=== PATIENT | male | born 1960 | race Caucasian/White ===

== ENCOUNTER 2017-04-22 10:05 | Inpatient (IN) ==
--- NOTE | 2017-04-22 10:46 | Emergency Department Note ---
START Narrative - START START: I examined this patient and my medical decision-making was reviewed with the Resident Physician. I agree with the documented findings, disposition and treatment plan as described except to the extent set forth below. 56 year old male presents to the ED with complaints of recurring abscess drainasge of his left elbow which he incurred from a trauamtic laceration which required 6 sutures and then tried outaptinet therapy with bactrim/keflex and now he is havign difficulty wiht range of motion of his elbow and the induration and redness is worsening with increased drainge from the laceration site. Nils denies fevers, nasuea, vomitting, although he has had two hip replacements in the past. No history of MRSA. He grew out GBS in the culture and we will admit to medicine after CT imaging of his elbow and IVF/abx therapy started and possible consult with ortho for septic joint.
[2017-04-22] MEDS ORDERED: Piperacillin/Tazobactam 3.375 GM in 0.9 % Sodium Chloride Mini Bag 100 ML IVPB ONE (10:47)
--- NOTE | 2017-04-22 10:49 | Emergency Department Note ---
Disposition Clinical Impression: Cellulitis of left upper extremity Disposition: Admitted As Inpatient Condition: Good Instructions: Cellulitis (ED) Referrals: Lu,Wu Perez MD [Primary Care Provider] - Extremity Problem HPI - General Chief complaint: ED Extremity Problem,Nontraumatic Stated complaint: Left arm abscess Time Seen by Provider: 04/22/17 10:15 Source: patient Mode of arrival: private vehicle Limitations: no limitations Nursing Notes Reviewed: Yes Vital Signs Reviewed: Yes - History of Present Illness HPI Narrative: Mr Schwab is a 56 yo M w/ pmh of hip replacement presented to ED with abscess on Left elbow. 3 weeks ago patient hit his elbow on a dresser, he presented to ED and had [address]. On this past Thursday patient had soreness and swelling of his left arm, he came to [facility] ED and was started on bactrim + keflex, and was instructed to return to ED if there was no improvement. Last night, patient states his arm was so swollen that he was very limited on the motion of his arm, as well, his wound has continuous pus. On admission today, cultures returned back positive from his last ED visit for Group B Strep. Patient denies fever, chills, or feeling ill in general. Pt Subjective Complaint: extremity swelling Onset (ago): week(s) (3) Consistency: constant Injury Location: left, elbow Pain Scale: 1 Quality: other (sore) Radiation: proximal (1/3 distal upper arm), distal (to hand) Improves with: nothing Worsens with: range of motion Associated symptoms: Reports: denies other symptoms - Related Data Home Medications Medication Instructions Recorded Confirmed Atenolol [Tenormin] 50 mg PO DAILY 04/22/17 04/22/17 Cephalexin [Keflex] 500 mg PO QID 04/22/17 04/22/17 Losartan/HCTZ [Hyzaar 50-12.5 1 tab PO DAILY 04/22/17 04/22/17 Tablet] Ranitidine HCl [Acid Cutter Banana Room] 150 mg PO DAILY 04/22/17 04/22/17 Sulfamethoxazole/Trimeth DS 1 tab PO BID 04/22/17 04/22/17 [Bactrim DS] Allergies Allergy/AdvReac Type Severity Reaction Status Date / Time No Known Allergies Allergy Verified 04/22/17 10:11 All systems ED: reviewed and negative except as stated. Review of Systems: As Per HPI Past Medical History - Past Medical History Medical history: Reports: GERD, hypertension Surgical history: Reports: orthopedic, other Psychiatric history: Reports: no psych history - Social History Smoking Status: Never smoker Smokeless Tobacco Status: No Alcohol use: Reports: none Drug use: Reports: none Physical Exam - General Limitations: no limitations General appearance: alert, in no apparent distress - Head Head exam: atraumatic - Respiratory Respiratory exam: Present: normal lung sounds bilaterally - Cardiovascular Cardiovascular exam: Present: regular rate, normal rhythm, normal heart sounds - Extremities Exam Extremities exam: Present: full ROM, tenderness (at left elbow), joint swelling - Expanded Upper Extremity Exam Arm exam: Present: swelling (L), erythema (L) Elbow exam: Present: laceration (l) Forearm/Wrist exam: Present: swelling (l), erythema (l) Vascular exam: Normal: capillary refill (<2 sec), radial pulse (symmetrical), ulnar pulse (symmetrical) Course Course Narrative: Most likely cellulitis from Left elbow laceration. Patient is vitally stable but Left arm is indurated from 1/3 distal upper arm to finger tips. Culture of wound came back positive for GBS. Patient failed outpatient abx treatment with Bactrim and Keflex will admit for IV abx and observation. Ordered CT of elbow, and will consider ortho consult for washout. Vital Signs Temperature 98.8 F 04/22/17 10:11 Pulse Rate 84 04/22/17 10:11 Respiratory Rate 16 04/22/17 10:11 Blood Pressure 141/93 04/22/17 10:11 O2 Sat by Pulse Oximetry 96 04/22/17 10:11 Temperature 98.8 F 04/22/17 10:11 Pulse Rate 84 04/22/17 10:11 Respiratory Rate 16 04/22/17 10:11 Blood Pressure 141/93 04/22/17 10:11 O2 Sat by Pulse Oximetry 96 04/22/17 10:11 Oxygen Delivery Oxygen Delivery Room Air Extremity Problem, Nontraumati - [facility] Narrative Medical decision making narrative: Indurated left arm due to left elbow laceration from 3 weeks ago. Non- responsive to oral abx, will admit for IV abx - Differential Diagnosis Likely: cellulitis. Unlikely: herpes zoster, gout, deep venous thrombosis, lower extremity edema, compartment syndrome, arterial vascular disorder - Medical Records Medical records reviewed: Yes I reviewed the patient's medical records. - Lab Data Lab results reviewed: Yes I reviewed the patient's lab results. Critical Care Time Critical Care Time: No
[2017-04-22 10:58] LABS: Basophils % 0.6 %; Eosinophils # 0.1 K/mcL (0.0-0.6); Eosinophils % 1.2 %; Hematocrit 43.8 % (37.5-50.1); Immature Granulocytes % 0.4 % (0-4); Lymphocytes # 0.9 K/mcL (0.6-4.6); Lymphocytes % 13.8 %; Mean Corpuscular HGB Conc 34.2 g/dL (31.6-35.5); Mean Corpuscular Hemoglobin 31.2 pg (28.0-33.3); Mean Corpuscular Volume 91.1 fL (83.0-100.0); Mean Platelet Volume 9.6 fL (9.4-12.4); Monocytes # 0.5 K/mcL (0.0-1.3); Monocytes % 7.5 %; Neutrophils # 5.1 K/mcL (1.6-8.9); Platelet Count 213 K/mcL (140-400); Red Blood Count 4.81 M/mcL (4.19-5.50); Red Cell Distribution Width 12.3 % (11.5-14.5); Segmented Neutrophils % 76.5 %
[2017-04-22 11:03] LABS: INR 1.1; Prothrombin Time 11.4 Seconds (9.4-12.1)
[2017-04-22 11:06] LABS: Activated Partial Thrombo Time 32.4 Seconds (26.0-36.0)
[2017-04-22] MEDS: 0.9 % Sodium Chloride 1,000 ML IVC SCH ×2 (11:15→13:58)
[2017-04-22 11:18] LABS: BUN/Creatinine Ratio 11 (6-26); Blood Urea Nitrogen 12 mg/dL (6-20); Calcium 9.1 mg/dL (8.6-10.3); Carbon Dioxide 27 mEq/L (23-29); Chloride 100 mEq/L (98-107); Glucose 185 mg/dL (70-105); Magnesium 1.8 mg/dL (1.6-2.6); Osmolality,Calculated 285 (280-300); Phosphorous 2.4 mg/dL (2.7-4.5); Potassium 3.5 mEq/L (3.5-5.1); Sodium 135 mEq/L (136-145); eGFR For African Americans > 60 (> 60); eGFR For Non-African Americans > 60 (> 60)
[2017-04-22] MEDS ORDERED: *HR* HYDROcodone/Acet 5/325 mg TABLET PO ONE (15:52)
[2017-04-22] MEDS ORDERED: Naloxone 0.4 MG/ML INJ IVP PRN (16:01)
[2017-04-22] MEDS ORDERED: Acetaminophen 325 MG TABLET PO PRN (16:01)
[2017-04-22] MEDS ORDERED: *HR* HYDROcodone/Acet 5/325 mg TABLET PO PRN (16:17)
--- NOTE | 2017-04-22 16:21 | Internal Med History&Physical ---
Date of Encounter: 04/22/17 Time of Encounter: 16:21 Assessment and Plan (1) Essential hypertension Current visit: Yes Status: Acute Continue losartan HCTZ and atenolol. Blood pressure is currently well controlled. (2) Cellulitis of left upper extremity Current visit: Yes Status: Acute Center around the left elbow. CT of the arm shows fluid collection with surrounding cellulitis. We will treat him with broad-spectrum IV antibiotics to cover community- acquired MRSA including vancomycin and Zosyn. We will follow up wound culture and sensitivities as well as blood cultures and adjust antibiotic therapy accordingly. We will consult orthopedics for I&D. Pain control with Lyly. He is at high risk for morbidity and complications due to treatment with IV vancomycin which requires blood level monitoring for toxicity and therapeutic effect. (3) GERD (gastroesophageal reflux disease) Current visit: Yes Status: Acute Continue with Pepcid Qualifiers: Esophagitis presence: without esophagitis Qualified Code(s): K21.9 - Gastro -esophageal reflux disease without esophagitis (4) DVT prophylaxis Current visit: Yes Status: Acute Encourage ambulation. No pharmacological prophylaxis needed due to ambulatory status. Internal Medicine - H&P: HPI Chief complaint: Left elbow pain Admitted From: Emergency Dept Plans for Post Hospital Care: Home History of present illness: Mr. Schwab is a 56 year old male with past medical history significant for hypertension and GERD who presented to the hospital for evaluation of left elbow pain. He scraped his elbow 2 weeks ago at home and caused a laceration which was sutured the next day in the emergency department. The wound was healing appropriately up until 5 days ago when he started noticing some swelling in his elbow. 2 days ago he presented to the emergency department and he was given IM antibiotics, the wound was cleaned but not debrided and he was sent home with oral antibiotics. Since then he noticed worsening mild to moderate aching pain in the left elbow, worse with movement. He denies associated fevers chills and nausea. A 10 point review of systems was negative except as above Surgical history pertinent for bilateral hip replacement, right shoulder surgery and fasciotomy of both lower extremities for compartment syndrome Family history was reviewed and found to be noncontributory Social history he denies tobacco alcohol and drug use. Past Med Surg Social Fam HX - Past Medical History Medical history: GERD, hypertension Psychiatric history: no psych history - Past Surgical History Surgical History: orthopedic, other - Social History Smoking Status: Never smoker Smokeless Tobacco Status: No Alcohol use: none Drug use: none - Family History Mother Hx Family Endocrine Disorder: Yes (diabetes) Internal Medicine - H&P: Meds Atenolol [Tenormin] 50 mg PO DAILY 04/22/17 [History] Cephalexin [Keflex] 500 mg PO QID 04/22/17 [History] Losartan/HCTZ [Hyzaar 50-12.5 Tablet] 1 tab PO DAILY 04/22/17 [History] Ranitidine HCl [Acid Collector Of Port] 150 mg PO DAILY 04/22/17 [History] Sulfamethoxazole/Trimeth DS [Bactrim DS] 1 tab PO BID 04/22/17 [History] 3 Allergy/AdvReac Type Severity Reaction Status Date / Time No Known Allergies Allergy Verified 04/22/17 10:11 All Systems PM: A 10-system review of systems was performed and is negative for pertinent findings except as documented above in the HPI. - Constitutional Vitals: Temp Pulse Resp BP Pulse Ox 98.1 F 100 16 117/69 94 04/22/17 15:22 04/22/17 15:22 04/22/17 15:22 04/22/17 15:22 04/22/17 15:22 General appearance: Present: A&O X 3, no acute distress - Eye Eye exam: Present: PERRL, conjuntiva pink, sclera anicteric Pupils: Present: PERRL - Respiratory Respiratory exam: Present: CTAB. Absent: accessory muscle use, rales, rhonchi, wheezes - Cardiovascular Cardiovascular exam: Present: RRR, +S1, +S2. Absent: diastolic murmur, gallop, rubs, systolic murmur - GI/Abdominal GI/Abdominal exam: Present: normal bowel sounds, soft, no peritoneal signs. Absent: distended, tenderness - Neurological Exam Neurological exam: Present: CN II-XII intact, oriented X3, no focal deficits. Absent: pronater drift, facial droop, speech deficit - Skin Skin exam: Present: dry Additional comments: Left elbow is covered with dressing clean dry and intact, there is an area of mild erythema and soft tissue edema extended beyond the dressing. Internal Med - H&P Results - Labs CBC & Chem 7: 04/22/17 10:40 04/22/17 10:40
--- NOTE | 2017-04-22 16:26 | Orthopedic Consult Note ---
Date of Encounter: 04/22/17 Time of Encounter: 16:24 Assessment and Plan (1) Cellulitis of left upper extremity Current Visit: Yes Status: Acute I did discuss the diagnosis with the patient in great detail. 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 There is overlying cellulitis. My recommendation is for formal operative debridement of devitalized tissue involving the left posterior elbow region followed by wet-to- dry dressings. This will likely require long-term wound care, possible VAC treatment, and possible the need for split-thickness skin grafting in the future. He can have a diet now. I did place a dressing over the wound. Nothing by mouth after midnight. He is placed on the add-on schedule for the above procedure for tomorrow afternoon/early evening. History of Present Illness HPI: Mr. 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 He comes in for evaluation of his left elbow. About 3 weeks ago he sustained an injury when he fell on a piece of furniture which caused a stellate laceration to the left olecranon bursal area. This was closed acutely in the emergency department and the patient was discharged home and he had his sutures taken out about 9 days ago by an outside clinic. The patient says the wound had never healed and he began to develop redness and had concerns for infection and presented to the emergency department 2 days ago where he is placed on Keflex and Bactrim. He came back to the emergency department today due to persistence of pain, swelling, redness, and drainage. The CT scan did show olecranon bursitis and previous cultures obtained of the bursal fluid demonstrated group B strep. The patient was admitted to the hospitalist and orthopedics was consulted to assist in the evaluation and management of this patient. On my evaluation the patient complains of isolated moderate achy pain to the posterior left olecranon region. Mild numbness in this area. Pain is worse with movement of the elbow and better with rest. No numbness, tingling, or other associated signs or symptoms or modifying factors. He denies any feelings of illness. Past Med Surg Social Fam HX - Past Medical History Medical history: GERD, hypertension Psychiatric history: no psych history - Past Surgical History Surgical History: orthopedic, other - Social History Smoking Status: Never smoker Smokeless Tobacco Status: No Alcohol use: none Drug use: none - Family History Mother Hx Family Endocrine Disorder: Yes (diabetes) Medications and Allergies Atenolol [Tenormin] 50 mg PO DAILY 04/22/17 [History] Cephalexin [Keflex] 500 mg PO QID 04/22/17 [History] Losartan/HCTZ [Hyzaar 50-12.5 Tablet] 1 tab PO DAILY 04/22/17 [History] Ranitidine HCl [Acid Small Engine Mechanic] 150 mg PO DAILY 04/22/17 [History] Sulfamethoxazole/Trimeth DS [Bactrim DS] 1 tab PO BID 04/22/17 [History] 3 Allergy/AdvReac Type Severity Reaction Status Date / Time No Known Allergies Allergy Verified 04/22/17 10:11 All Systems Reviewed: A 10-system review of systems was performed and is negative for pertinent findings except as documented above in the HPI. Physical Exam - Constitutional Vitals: Temp Pulse Resp BP Pulse Ox 98.1 F 100 16 117/69 94 04/22/17 15:22 04/22/17 15:22 04/22/17 15:22 04/22/17 15:22 04/22/17 15:22 CONSTITUTIONAL -Vitals reviewed -The patient is well developed, well nourished, well groomed PSYCHIATRIC -Fully alert and oriented -Pleasant mood LEFT UPPER EXTREMITY Inspection shows that over the olecranon bursa there is a 2 cm long by 1 cm wide area of ulceration with a small fistula communicating with the olecranon bursa. There is moderate drainage. There is surrounding erythema and induration and there is tenderness in this area. Full active and passive motion of the elbow without generalized elbow pain. The patient can actively flex and extend all digits, extend the thumb, cross the index and long fingers, make an okay sign, and oppose the thumb. The fingertips are all grossly sensate and well-perfused, and the radial artery pulse is 2+. Diagnostic Imaging: I did personally review and interpret the CT scan of the left elbow which did show bursal inflammation and air presumably from communication of the bursa with the environment through the fistula. Results - Labs Result Diagrams: 04/22/17 10:40 04/22/17 10:40 Labs: Abnormal lab results Sodium 135 mEq/L (136-145) L 04/22/17 10:40 Glucose 185 mg/dL (70-105) H 04/22/17 10:40 Phosphorus 2.4 mg/dL (2.7-4.5) L 04/22/17 10:40 All other labs normal. Consult Discharge Plan - Plan Referrals: Wu Lu MD [Primary Care Provider] -
[2017-04-23 05:54] LABS: Basophils % 0.7 %; Eosinophils # 0.1 K/mcL (0.0-0.6); Eosinophils % 1.7 %; Hematocrit 40.7 % (37.5-50.1); Hemoglobin 13.7 g/dL (12.9-16.9); Immature Granulocytes % 0.7 % (0-4); Lymphocytes # 1.2 K/mcL (0.6-4.6); Lymphocytes % 20.6 %; Mean Corpuscular HGB Conc 33.7 g/dL (31.6-35.5); Mean Corpuscular Hemoglobin 31.4 pg (28.0-33.3); Mean Corpuscular Volume 93.3 fL (83.0-100.0); Mean Platelet Volume 9.7 fL (9.4-12.4); Monocytes # 0.6 K/mcL (0.0-1.3); Monocytes % 9.9 %; Neutrophils # 3.9 K/mcL (1.6-8.9); Platelet Count 199 K/mcL (140-400); Red Blood Count 4.36 M/mcL (4.19-5.50); Red Cell Distribution Width 12.3 % (11.5-14.5); Segmented Neutrophils % 66.4 %
[2017-04-23 06:32] LABS: BUN/Creatinine Ratio 10 (6-26); Blood Urea Nitrogen 8 mg/dL (6-20); Calcium 8.8 mg/dL (8.6-10.3); Carbon Dioxide 28 mEq/L (23-29); Chloride 104 mEq/L (98-107); Glucose 118 mg/dL (70-105); Magnesium 1.9 mg/dL (1.6-2.6); Osmolality,Calculated 285 (280-300); Potassium 3.6 mEq/L (3.5-5.1); Sodium 138 mEq/L (136-145); eGFR For African Americans > 60 (> 60); eGFR For Non-African Americans > 60 (> 60)
[2017-04-23] MEDS: Famotidine 20 MG TABLET PO SCH (08:44)
[2017-04-23] MEDS: Losartan/HCTZ 50-12.5 TABLET PO SCH (08:44)
[2017-04-23] MEDS ORDERED: Aminoglycoside Consult 1 EACH MC ONE (12:19)
--- NOTE | 2017-04-23 13:07 | Internal Med Progress Note ---
Date of Encounter: 04/23/17 Time of Encounter: 13:05 - Assessment and plan (1) Cellulitis of left upper extremity Current Visit: Yes Status: Acute Assessment and plan: Continue with broad-spectrum antibiotics with ankle and Zosyn. Orthopedics to take to the OR later today. Continue with pain control. Continue with wound care. (2) Essential hypertension Current Visit: Yes Status: Acute Assessment and plan: Blood pressure is well controlled. Continue with atenolol and Hyzaar (3) GERD (gastroesophageal reflux disease) Current Visit: Yes Status: Acute Assessment and plan: Continue Pepcid Qualifiers: Esophagitis presence: without esophagitis Qualified Code(s): K21.9 - Gastro -esophageal reflux disease without esophagitis (4) DVT prophylaxis Current Visit: Yes Status: Acute Assessment and plan: Heparin subcutaneous - Subjective Interval history: Patient was seen and examined. No acute events. Afebrile. Admitted with a left elbow bursitis/cellulitis. Seen by orthopedics. Denies any headaches, chest pain, nausea, vomiting. - Constitutional Vitals: Temp Pulse Resp BP Pulse Ox 98.3 F 72 14 101/65 95 04/23/17 10:53 04/23/17 10:53 04/23/17 10:53 04/23/17 10:53 04/23/17 10:53 General appearance: Present: A&O X 3, no acute distress Exam: GEN: NAD CVS: RRR. S1, S2, No m/r/g RESP: CTAB ABD: Soft, NT, ND, +BS EXT: No edema. 2+ DP. No rashes. Left elbow with a small laceration at about 2 cm with drainage with surrounding erythema and induration. Area is tender to palpation. NEURO: Nonfocal Internal Medicine: Result - Labs CBC & Chem 7: 04/23/17 05:00 04/23/17 05:00 Labs: Short CBC 04/23/17 Range/Units 05:00 WBC 5.9 (4.3-11.1) K/mcL Hgb 13.7 (12.9-16.9) g/dL Hct 40.7 (37.5-50.1) % Plt Count 199 (140-400) K/mcL Neutrophils # 3.9 (1.6-8.9) K/mcL BMP 04/23/17 05:00 Sodium 138 Potassium 3.6 Chloride 104 Carbon Dioxide 28 BUN 8 Creatinine 0.80 Glucose 118 H Calcium 8.8 - ABG Interpretation ABG results: PT/INR, D-dimer PT 11.4 Seconds (9.4-12.1) 04/22/17 10:40 Consult Discharge Plan - Plan Referrals: Aly,Wu Perez MD [Primary Care Provider] -
[2017-04-23] MEDS: *HR* Heparin 5,000 UNIT/ML VIAL SQ SCH ×2 (13:26→22:31)
--- NOTE | 2017-04-23 15:37 | Anesthesia Evaluation PreOp ---
Date of Encounter: 04/23/17 Time of Encounter: 15:35 - Past History Planned Operation: L-elbow I&D re: LUE cellulitis Cardiac History: HTN (maintained on Hcts, Losartan, Atenolol) Pulmonary History: Denies Any Significant HX COMPUTATIONAL CHEMIST History: Denies Any Significant HX Other Medical History: Denies Any Significant HX, GERD Anesthesia History: No Prior Anesthetic Complications, Past Anesthesia (B-Hip replacement, R-shoulder surgery, Fasciotomy BLE re: compartment syndrome, EGD) Alcohol Use: none Drug use: none Medications and Allergies Atenolol [Tenormin] 50 mg PO DAILY 04/22/17 [History] Cephalexin [Keflex] 500 mg PO QID 04/22/17 [History] Losartan/HCTZ [Hyzaar 50-12.5 Tablet] 1 tab PO DAILY 04/22/17 [History] Ranitidine HCl [Acid Front Window Cashier] 150 mg PO DAILY 04/22/17 [History] Sulfamethoxazole/Trimeth DS [Bactrim DS] 1 tab PO BID 04/22/17 [History] 3 Allergy/AdvReac Type Severity Reaction Status Date / Time No Known Allergies Allergy Verified 04/22/17 10:11 - Meds/Allergy Pre-op Review Medications Reviewed: Yes Allergies Reviewed: Yes Beta Blockers on Current Med List: Yes (Atenolol) If Beta Blockers taken, Date/Time (Last Dose taken): 04/23/2017 @ 0844 Anesthesia Results - Labs 04/23/17 05:00 04/23/17 05:00 Laboratory Results WBC 5.9 K/mcL (4.3-11.1) 04/23/17 05:00 RBC 4.36 M/mcL (4.19-5.50) 04/23/17 05:00 Hgb 13.7 g/dL (12.9-16.9) 04/23/17 05:00 Hct 40.7 % (37.5-50.1) 04/23/17 05:00 MCV 93.3 fL (83.0-100.0) 04/23/17 05:00 MCH 31.4 pg (28.0-33.3) 04/23/17 05:00 MCHC 33.7 g/dL (31.6-35.5) 04/23/17 05:00 RDW 12.3 % (11.5-14.5) 04/23/17 05:00 Plt Count 199 K/mcL (140-400) 04/23/17 05:00 MPV 9.7 fL (9.4-12.4) 04/23/17 05:00 Immature Gran % 0.7 % (0-4) 04/23/17 05:00 Seg Neutrophils % 66.4 % 04/23/17 05:00 Lymphocytes % 20.6 % 04/23/17 05:00 Monocytes % 9.9 % 04/23/17 05:00 Eosinophils % 1.7 % 04/23/17 05:00 Basophils % 0.7 % 04/23/17 05:00 Neutrophils # 3.9 K/mcL (1.6-8.9) 04/23/17 05:00 Lymphocytes # 1.2 K/mcL (0.6-4.6) 04/23/17 05:00 Monocytes # 0.6 K/mcL (0.0-1.3) 04/23/17 05:00 Eosinophils # 0.1 K/mcL (0.0-0.6) 04/23/17 05:00 Basophils # 0.0 K/mcL (0.0-0.2) 04/23/17 05:00 PT 11.4 Seconds (9.4-12.1) 04/22/17 10:40 INR 1.1 04/22/17 10:40 APTT 32.4 Seconds (26.0-36.0) 04/22/17 10:40 Sodium 138 mEq/L (136-145) 04/23/17 05:00 Potassium 3.6 mEq/L (3.5-5.1) 04/23/17 05:00 Chloride 104 mEq/L (98-107) 04/23/17 05:00 Carbon Dioxide 28 mEq/L (23-29) 04/23/17 05:00 BUN 8 mg/dL (6-20) 04/23/17 05:00 Creatinine 0.80 mg/dL (0.70-1.30) 04/23/17 05:00 Est GFR ( Amer) > 60 (> 60) 04/23/17 05:00 Est GFR (Non-Af Amer) > 60 (> 60) 04/23/17 05:00 BUN/Creatinine Ratio 10 (6-26) 04/23/17 05:00 Glucose 118 mg/dL (70-105) H 04/23/17 05:00 POC Glucose 128 (58-89) H 04/23/17 10:45 Calculated Osmolality 285 (280-300) 04/23/17 05:00 Lactic Acid 1.0 mmol/L (0.5-2.2) 04/22/17 15:09 Calcium 8.8 mg/dL (8.6-10.3) 04/23/17 05:00 Phosphorus 2.4 mg/dL (2.7-4.5) L 04/22/17 10:40 Magnesium 1.9 mg/dL (1.6-2.6) 04/23/17 05:[address] 04/22/17 10:47 IMPRESSION: 1. Subcutaneous abscess, skin defect and surrounding cellulitis overlying the olecranon. The abscess measures approximately 2.2 x 2.0 x 1.4 cm. 2. The process approximates the surface of the olecranon. There is no CT evidence of osteomyelitis. MR imaging is more sensitive for the diagnosis of early acute osteomyelitis. 3. No evidence of septic arthritis. D/ / 04/22/2017 12:26:02 Zeeshan Mcbride MD / [facility] Interpreting Provider: Zeeshan Mcbride MD Anesthesia Exam Vital Signs Temp Pulse Resp BP Pulse Ox 04/23/17 14:10 98.7 F 75 16 100/61 93 04/23/17 10:53 98.3 F 72 14 101/65 95 04/23/17 06:57 98.5 F 82 14 126/80 95 04/23/17 03:38 98.4 F 79 15 132/84 94 04/23/17 00:20 97.7 F 83 15 128/66 95 04/22/17 18:47 98.3 F 98 15 130/79 93 Intake and Output 04/22/17 04/23/17 04/23/17 23:59 07:59 15:59 Intake Total 0 / 0 600 / 600 350 / 350 Output Total 0 / 0 600 / 600 Balance 0 / 0 0 / 0 350 / 350 Intake: IV Fluids 600 / 600 350 / 350 Zosyn 3.375 GM In 0.9 % Sodium 100 / 100 100 / 100 Chloride 100 ML @ 25 mls/hr IVPB Q8H [facility] Rx#:[id number] Vancocin 1,500 MG In 0.9 % 250 / 250 Sodium Chloride 250 ML @ 166.67 mls/hr IVPB Q12H [facility] Rx#: [id number] Vancocin 1,750 MG In 0.9 % 500 / 500 Sodium Chloride 500 ML @ 334. 014 mls/hr IVPB Q12H [facility] Rx#: [id number] Oral 0 / 0 0 / 0 Output: Urine 0 / 0 600 / 600 Other: Meal npo Weight 109.6 kg Blood Glucose* 127 128 Patient Weight 04/23/17 23:59 Weight 109.6 kg Height: 5'10" Weight: 241# BMI = 35 NPO (# of Hours): MNOc - HEENT Pupil (Motor): Pupils equal, EOMI Mallampati: II Teeth: Normal Oral Opening: Greater than 3 - COMPUTATIONAL CHEMIST LOC: Oriented COMPUTATIONAL CHEMIST Motor: Normal RUE, Normal LUE, Normal RLE, Normal LLE, Normal Face COMPUTATIONAL CHEMIST Sensory: Normal: RUE, LUE, RLE, LLE, Face - Cardiac Rhythm: Regular Murmur: None - Pulmonary Breath Sounds: bilateral Clear Respiratory Effort: Symmetrical Anesthesia Assess/Plan Modified Franklin Scale for Level of Consciousness: Cooperative, oriented, and tranquil Anesthetic Plan: General Monitoring Plan: Standard Monitors Recovery Plan: PACU
[2017-04-23] MEDS ORDERED: Bupivacaine/EPI 1:200k 0.5%PF 30 ML VIAL ONE (16:39)
[2017-04-23] MEDS ORDERED: *HR* Propofol 200 MG/20 ML VIAL IVP ONE (16:54)
[2017-04-23] MEDS ORDERED: *HR* FentaNYL (PF) 100 MCG/2 ML VIAL ONE ×2 (16:54→17:36)
[2017-04-23] MEDS ORDERED: *HR* Midazolam HCl 2 MG/2 ML VIAL ONE (16:55)
[2017-04-23] MEDS ORDERED: Lidocaine -MPF 2% 2 ML VIAL ONE (16:58)
[2017-04-23] MEDS ORDERED: Dexamethasone 4 MG/ML VIAL ONE (16:58)
[2017-04-23] MEDS ORDERED: Ondansetron 4 MG/2 ML VIAL ONE (16:58)
--- NOTE | 2017-04-23 17:56 | Orthopedic Operative Note ---
Date of procedure: 04/23/17
[2017-04-23] MEDS ORDERED: *HR* OxyCODONE Immed Rel 5 MG TABLET PO ONE (18:00)
[2017-04-23] MEDS ORDERED: Acetaminophen IV 1,000 MG/100 ML INFUS..BTL IVPB ONE (18:00)
--- NOTE | 2017-04-23 18:03 | Orthopedic Operative Note ---
Date of procedure: 04/23/17 Procedure: OPERATIVE REPORT DATE OF PROCEDURE: 04/23/2017 SURGEON: Minesh Sotomayor MD [employer](S): There were no assistants PREOPERATIVE DIAGNOSIS: Left infected olecranon bursitis POSTOPERATIVE DIAGNOSIS: Same PROCEDURE: Incision, drainage, irrigation, and debridement of the left olecranon bursa ANESTHESIA: General anesthesia PREOPERATIVE ANTIBIOTICS: Vancomycin and Zosyn from the floor ESTIMATED BLOOD LOSS: 1 milliliters TOURNIQUET TIME: 13 minutes at 250 mmHg SPECIMENS: Left olecranon bursa sent for tissue culture and swabs IMPLANTS: No implants LOCAL INJECTION: No injection PREOPERATIVE NOTE AND INDICATIONS: This patient is a 56-year-old male sustained a traumatic bursitis of the left olecranon bursa after falling and hitting a piece of furniture. This was closed in the emergency department but he had gone on to develop an infection and was admitted to the hospitalist and I was consulted to assist in evaluation and management. Recommendations for the above procedure to first clear the infection and I anticipate wound healing through secondary intention or skin graft coverage in the future. The surgical plan was discussed with the patient. The risks, benefits, alternatives, and potential complications of this procedure were discussed with the patient including injury to veins, arteries, nerves, tendons, ligaments, and bone. Also discussed were the risks of infection, bleeding, pain, blood clots, the possible need for a blood transfusion, the possible need for further procedures, heart attack, stroke, and . Additional risks include chronic fistula. All of this was explained in simple terms, and the patient verbalized understanding and wished to proceed. Consent was given to proceed with surgery. PROCEDURE: The patient was seen in the preoperative holding area where the identify and the consent were confirmed. The left elbow was marked. Final questions were answered. The patient was brought back to the operating room and placed supine on the operating room table. A huddle was performed with the patient and all vital surgical team members confirming patient identity, the correct procedure, and the correct operative site. Gen. anesthesia was administered. The left upper extremity was prepped and draped in the usual sterile fashion. A surgical time out was performed immediately preceding the incision with all personnel in the operating room to confirm patient identity, the correct operative site and extremity, correct radiographic studies, availability of appropriate surgical equipment, and agreement on the planned procedure. The tourniquet was inflated without exsanguination. The wound was evaluated and noted to be about 2 cm in length by 1 cm in width. This is extended proximally by about 2 cm and the bursa was entered. There is necrotic fat and bursal tissue which was sharply debrided and sent for tissue specimen. There was no gross purulence. The wound was swabbed. The necrotic skin margins were also excised and discarded. Copious amounts of saline were flushed through the wound. The incision that was created at the beginning of the case was closed with interrupted nylon stitches. The final width of the open wound was about 2.2 cm x 1.2 cm. This was packed with iodoform quarter-inch packing. A sterile soft dressing was applied after the tourniquet was deflated. The instrument, sponge, and needle counts were correct after wound closure. POST OPERATIVE PLAN: Weight Bearing: Weightbearing as tolerated to left upper extremity. DVT Prophylaxis: Per the hospitalist Activity: Avoid aggressive activities with the left upper extremity. Wound Care: Local wound care with daily wet-to-dry dressing changes Pain Control: Per the hospitalist Was there an patent legal assistant present: No Estimated blood loss (cc): 1
[2017-04-23] MEDS ORDERED: Ketorolac 30 MG/ML VIAL IVP ONE (18:12)
[2017-04-23] MEDS ORDERED: *HR* HYDROmorphone 2 MG TABLET PO PRN (18:12)
[2017-04-23] MEDS ORDERED: *HR* Meperidine 25 MG/ML SYRINGE IVP PRN (18:12)
[2017-04-23] MEDS ORDERED: Ondansetron 4 MG/2 ML VIAL IVP ONE (18:12)
[2017-04-23] MEDS ORDERED: Ringers Solution, Lactated 1,000 ML IVC SCH (18:15)
--- NOTE | 2017-04-23 19:18 | Anesthesia Evaluation Post Op ---
Date of Encounter: 04/23/17 Time of Encounter: 19:17 - Vital Signs Vital Signs: Vital Signs/O2 Sat, Most Current Temp Pulse Resp BP Pulse Ox 98.7 F 24 16 128/76 98 04/23/17 18:50 04/23/17 18:50 04/23/17 18:50 04/23/17 18:50 04/23/17 18:50 - Lungs Lungs: Clear Ascult./Percussion - Airway Airway: Non-obstructed - Cardiovascular Regular Rate - Mental Status Mental Status: Alert & Oriented, Answers Appropriately - Pain Pain Scale: 0 Pain Scale used: Numeric (1 - 10) - Nausea Vomiting Nausea Vomiting: Not Present - Hydration Hydration: Ice chips, Sauer catheter - Discharge PostOp Status: Transfer Patient to floor Attestation: I have assessed this patient and find they meet discharge criteria.
[2017-04-24 04:43] LABS: Basophils % 0.4 %; Hematocrit 40.9 % (37.5-50.1); Hemoglobin 14.3 g/dL (12.9-16.9); Immature Granulocytes % 0.5 % (0-4); Lymphocytes # 0.7 K/mcL (0.6-4.6); Lymphocytes % 8.1 %; Mean Corpuscular Hemoglobin 32.1 pg (28.0-33.3); Mean Corpuscular Volume 91.7 fL (83.0-100.0); Mean Platelet Volume 9.7 fL (9.4-12.4); Monocytes # 0.4 K/mcL (0.0-1.3); Monocytes % 4.9 %; Neutrophils # 7.3 K/mcL (1.6-8.9); Platelet Count 221 K/mcL (140-400); Red Blood Count 4.46 M/mcL (4.19-5.50); Red Cell Distribution Width 11.9 % (11.5-14.5); Segmented Neutrophils % 86.1 %
[2017-04-24 05:12] LABS: BUN/Creatinine Ratio 15 (6-26); Blood Urea Nitrogen 13 mg/dL (6-20); Calcium 8.7 mg/dL (8.6-10.3); Carbon Dioxide 25 mEq/L (23-29); Chloride 103 mEq/L (98-107); Glucose 141 mg/dL (70-105); Osmolality,Calculated 280 (280-300); Potassium 4.8 mEq/L (3.5-5.1); Sodium 134 mEq/L (136-145); eGFR For African Americans > 60 (> 60); eGFR For Non-African Americans > 60 (> 60)
[2017-04-24] MEDS: *HR* Heparin 5,000 UNIT/ML VIAL SQ SCH (05:39)
--- NOTE | 2017-04-24 07:39 | Orthopedics Progress Note ---
Date of Encounter: 04/24/17 Time of Encounter: 07:37 - Assessment and Plan (1) Cellulitis of left upper extremity Current Visit: Yes Status: Acute I did discuss the diagnosis with the patient in great detail. 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 There is overlying cellulitis. My recommendation is for formal operative debridement of devitalized tissue involving the left posterior elbow region followed by wet-to- dry dressings. This will likely require long-term wound care, possible VAC treatment, and possible the need for split-thickness skin grafting in the future. He can have a diet now. I did place a dressing over the wound. Nothing by mouth after midnight. He is placed on the add-on schedule for the above procedure for tomorrow afternoon/early evening. Subjective Interval history: S: Patient did well overnight. Minimal pain to the left posterior elbow. O: Afebrile and vital signs are stable Packing removed from the left elbow wound. No erythema at this point and there is no gross purulence. The wound bed looks healthy. A new wet-to-dry dressing was placed. The patient can actively flex and extend all digits, extend the thumb, cross the index and long fingers, make an okay sign, and oppose the thumb. The fingertips are all grossly sensate and well-perfused, and the radial artery pulse is 2+. A: Postoperative debridement and irrigation of the left olecranon bursa P: Recommendation at this point was for local wound care with daily wet-to-dry dressing changes which I taught the patient how to do. It would be reasonable this point to discharge him on broad-spectrum oral antibiotics. I will see him in the office in about a week for a clinical reevaluation I did discuss with the patient that once the infection is cleared we will discuss definitive wound management which could either be healing to secondary intention versus delayed primary closure versus skin grafting. Objective Vital signs: Vital Signs Temp Pulse Resp BP Pulse Ox 04/24/17 06:27 97.6 F 73 18 110/66 95 04/24/17 03:30 97.9 F 78 14 114/78 94 04/23/17 23:05 97.9 F 70 14 96/60 93 04/23/17 22:00 93 04/23/17 21:51 98.0 F 83 14 104/67 93 04/23/17 20:30 97.6 F 74 14 114/75 91 04/23/17 18:50 98.7 F 24 16 128/76 98 04/23/17 18:40 98.7 F 71 16 134/84 98 04/23/17 18:30 71 16 129/87 97 04/23/17 18:20 64 14 124/79 98 04/23/17 18:10 98.2 F 67 14 134/86 99 04/23/17 18:00 70 12 130/87 99 04/23/17 17:50 71 12 119/82 96 04/23/17 17:40 98.4 F 73 12 126/83 100 04/23/17 16:51 74 15 111/77 96 04/23/17 14:10 98.7 F 75 16 100/61 93 04/23/17 10:53 98.3 F 72 14 101/65 95 Intake and Output 04/23/17 04/23/17 04/24/17 15:59 23:59 07:59 Intake Total 350 / 350 450 / 450 100 / 100 Output Total / 200 / 200 Balance 350 / 350 449 / 449 -100 / -100 Intake: IV Fluids 350 / 350 450 / 450 100 / 100 Ofirmev 1,000 mg/100 ml 1,000 100 / 100 mg In 100 ml @ 400 mls/hr IVPB ONCE ONE Rx#:[id number] Zosyn 3.375 GM In 0.9 % Sodium 100 / 100 100 / 100 100 / 100 Chloride 100 ML @ 25 mls/hr IVPB Q8H [facility] Rx#:[id number] Vancocin 1,500 MG In 0.9 % 250 / 250 250 / 250 Sodium Chloride 250 ML @ 166.67 mls/hr IVPB Q12H [facility] Rx#: [id number] Oral 0 / 0 0 / 0 Output: Urine 0 / 0 200 / 200 Estimated Blood Loss Other: Meal npo Weight 109.452 kg Blood Glucose* 128 Patient Weight 04/24/17 23:59 Weight 109.452 kg - Labs CBC & BMP: 04/24/17 03:51 04/24/17 03:51 Labs: Abnormal lab results Sodium 134 mEq/L (136-145) L 04/24/17 03:51 Glucose 141 mg/dL (70-105) H 04/24/17 03:51 POC Glucose 128 (58-89) H 04/23/17 10:45 Phosphorus 2.4 mg/dL (2.7-4.5) L 04/22/17 10:40 - VTE Documentation of Mechanical Device: Intermittent pneumatic compression device Consult Discharge Plan - Plan Referrals: Wu Lu MD [Primary Care Provider] -
--- NOTE | 2017-04-24 08:27 | Discharge Summary ---
Date of Encounter: 04/24/17 Time of Encounter: 08:25 - Discharge Diagnosis (1) Cellulitis of left upper extremity Priority: Primary Status: Acute (2) Essential hypertension Priority: Secondary Status: Acute (3) GERD (gastroesophageal reflux disease) Priority: Secondary Status: Acute Qualifiers: Esophagitis presence: without esophagitis Qualified Code(s): K21.9 - Gastro -esophageal reflux disease without esophagitis - Discharge Medications Prescriptions: Ciprofloxacin [Cipro] 500 mg PO BID #14 tablet Doxycycline 100 mg PO BID #14 capsule Home Medications: Atenolol [Tenormin] 50 mg PO DAILY 04/22/17 [History] Losartan/HCTZ [Hyzaar 50-12.5 Tablet] 1 tab PO DAILY 04/22/17 [History] Ranitidine HCl [Acid Periodicals Library Assistant] 150 mg PO DAILY 04/22/17 [History] Ciprofloxacin [Cipro] 500 mg PO BID #14 tablet 04/24/17 [Rx] Doxycycline 100 mg PO BID #14 capsule 04/24/17 [Rx] Allergies/Adverse Reactions: 3 Allergy/AdvReac Type Severity Reaction Status Date / Time No Known Allergies Allergy Verified 04/22/17 10:11 Date of admission: 04/22/17 16:01 Primary care physician: Wu Lu MD - Patient Status Disposition: Home, Self-Care Condition: Fair Overall status at discharge: patient is progressing back to baseline - Discharge Instructions Instructions: Cellulitis (DC) Follow Up With: Minesh Sotomayor MD [Partnered Physician] - 04/30/17 10:30 am (1 week) - Diet and Activity Activity: increase activity as tolerated Diet: regular diet Hospital course: Mr. Schwab is a 56 year old male with past medical history significant for hypertension and GERD who presented to the hospital for evaluation of left elbow pain. He scraped his elbow 2 weeks ago at home and caused a laceration which was sutured the next day in the emergency department. The wound was healing appropriately up until 5 days ago when he started noticing some swelling in his elbow. 2 days ago he presented to the emergency department and he was given IM antibiotics, the wound was cleaned but not debrided and he was sent home with oral antibiotics. Since then he noticed worsening mild to moderate aching pain in the left elbow, worse with movement. The ED he was hemodynamically stable. Was admitted to the hospitalist service. A CT of his elbow shows ABSCESS measuring 2.2 x 2.0 x 1.4 cm. Orthopedics were consulted and he underwent incision and drainage and irrigation and debridement of the left olecranon bursa. Cultures were negative. Or cultures are still pending. Orthopedics are okay with him being discharged on broad-spectrum antibiotics and they will follow up with him. He eventually ended up being discharged on on oral doxycycline and oral Cipro. - Time Spent with Patient Total time spent providing and/or coordinating discharge services: Greater than 30 minutes - Constitutional Vitals: Temp Pulse Resp BP Pulse Ox 97.6 F 73 18 110/66 95 04/24/17 06:27 04/24/17 06:27 04/24/17 06:27 04/24/17 06:27 04/24/17 06:27 General appearance: Present: A&O X 3, no acute distress Exam: GEN: NAD CVS: RRR. S1, S2, No m/r/g RESP: CTAB ABD: Soft, NT, ND, +BS EXT: No edema. 2+ DP. No rashes. Left elbow with a small laceration with no drainage with no surrounding erythema and induration. NEURO: Nonfocal - VTE Documentation of Mechanical Device: Intermittent pneumatic compression device
[2017-04-24] MEDS: Famotidine 20 MG TABLET PO SCH (08:39)
[2017-04-24] MEDS: Losartan/HCTZ 50-12.5 TABLET PO SCH (08:39)
[2017-04-24 10:01] VITALS: BP 101/66
== END 2017-04-24 12:20 | disposition home or self-care (01) | DRG 501 ==
LOC: EMEROO 10:05 → 3ANU 10:05
PROVIDERS: ADMIT Internal Medicine; ATTEND Internal Medicine